=== PATIENT | female | born 1955 ===

== ENCOUNTER 2017-12-15 07:20 | Day surgery (SDC) | payer MEDICARE ==
[2017-12-15 07:46] VITALS: BMI 26.7
[2017-12-15] MEDS ORDERED: Lactated Ringer's 500 ML IV ONE (09:08)
[2017-12-15 09:14] VITALS: O2SAT 100
[2017-12-15] MEDS ORDERED: Propofol 10 mg/ml Inj (20 ML) ONE (09:26)
[2017-12-15 10:11] VITALS: TEMP 96.8
[2017-12-15 10:26] VITALS: RESP 13
[2017-12-15 10:52] VITALS: BP 152/61; PULSE 55
== END 2017-12-15 10:52 | disposition home or self-care (01) ==
LOC: C.ENDO 07:20
PROVIDERS: ATTEND Internal Medicine Gastroenterology
DX: Z12.11 Encounter for screening for malignant neoplasm of colon (principal); K29.70 Gastritis, unspecified, without bleeding; K64.1 Second degree hemorrhoids; D12.0 Benign neoplasm of cecum; D12.3 Benign neoplasm of transverse colon
CPT/HCPCS: 43239; 45380; 45385; 88305; 88313; 88342; J2001; J2704; J7120